=== PATIENT | female | born 1970 ===

== ENCOUNTER 2018-09-06 12:16 | Emergency (ER) | payer SELFPAY ==
[2018-09-06 12:31] VITALS: RESP 18
[2018-09-06] MEDS ORDERED: Sodium Chloride 0.9% 500 ML IV STA (12:47)
[2018-09-06] MEDS ORDERED: DiphenhydrAMINE 50 mg/ml Inj IVP STA (12:47)
--- NOTE | 2018-09-06 12:53 | ED PDOC ---
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 Patient reports her stopped having her menstrual period 5 years ago, and since yesterday, she began experiencing vaginal spotting ranging from heavy to light flow intermittently. Patient states in the past she was told she has fibroids, however they were never removed as they were not causing her any pain at the time. Patient believes the fibroids may be causing the bleeding, however is uncertain. She mentions also having a headache since yesterday. Patient notes experiencing cold-like symptoms, such as sore throat, rhinorrhea, fever, chills, however denies any other complaints at this time. Past Medical History - Provider Review Nursing Documentation Reviewed: Yes - Infectious Disease Hx of Infectious Diseases: None - Psychiatric Hx Substance Use: No - Anesthesia Hx Anesthesia: No Hx Anesthesia Reactions: No Hx Malignant Hyperthermia: No Family/Social History - Physician Review Nursing Documentation Reviewed: Yes Family/Social History: No Known Family HX Smoking Status: Never Smoked Hx Alcohol Use: No Hx Substance Use: No Allergies/Home Meds Allergies/Adverse Reactions: Allergies No Known Allergies Allergy (Verified 09/06/18 12:31) Home Medications: Home Meds Medication Instructions Recorded Confirmed No Known Home Med 09/06/18 09/06/18 Review of Systems - Physician Review All systems were reviewed & negative as marked: Yes - Review of Systems Constitutional: Fevers, Night Sweats ENT: Sore Throat, Rhinorrhea Genitourinary Female: Vaginal Bleeding (vaginal spotting ranging from heavy to light flow intermittently) Neurological: Headache Physical Exam Vital Signs Reviewed: Yes Vital Signs Temp Pulse Resp BP Pulse Ox 09/06/18 12:20 98.3 F 90 18 127/72 95 Temperature: Afebrile Blood Pressure: Normal Pulse: Regular Respiratory Rate: Normal Appearance: Positive for: Well-Appearing, Non-Toxic, Comfortable Pain Distress: None Mental Status: Positive for: Alert and Oriented X 3 - Systems Exam Head: Present: Atraumatic, Normocephalic Pupils: Present: PERRL Extroacular Muscles: Present: EOMI Conjunctiva: Present: Normal Mouth: Present: Moist Mucous Membranes Pharnyx: Present: ERYTHEMA (mild) Neck: Present: Normal Range of Motion Respiratory/Chest: Present: Clear to Auscultation, Good Air Exchange. No: Respiratory Distress, Accessory Muscle Use Cardiovascular: Present: Regular Rate and Rhythm, Normal S1, S2. No: Murmurs Abdomen: No: Tenderness, Distention, Peritoneal Signs Back: Present: Normal Inspection Upper Extremity: Present: Normal Inspection. No: Cyanosis, Edema Lower Extremity: Present: Normal Inspection. No: Edema Neurological: Present: GCS=15, CN II-XII Intact, Speech Normal Skin: Present: Warm, Dry, Normal Color. No: Rashes Psychiatric: Present: Alert, Oriented x 3, Normal Insight, Normal Concentration Medical Decision Making ED Course and Treatment: 09/06/18 12:56 Impression: 48 year old female with vaginal spotting and cold-like symptoms. Physical exam shows mild pharynx erythema. Plan: -- Tylenol -- Benadryl -- Reglan -- IV Fluids -- Labs -- Urinalysis -- Reassess and disposition Progress Notes: 09/06/18 14:59 ucg neg. no indication for emergent imaging. in er neuro intact in nad. no thunderclap. no indication for emergent imaging. advise outpt fu and return precautions. - Scribe Statement The provider has reviewed the documentation as recorded by the Sandi Riggins Provider Scribe Attestation: All medical record entries made by the Sandi were at my direction and personally dictated by me. I have reviewed the chart and agree that the record accurately reflects my personal performance of the history, physical exam, medical decision making, and the department course for this patient. I have also personally directed, reviewed, and agree with the discharge instructions and disposition. Disposition/Present on Arrival - Present on Arrival Any Indicators Present on Arrival: No History of DVT/PE: No History of Uncontrolled Diabetes: No Urinary Catheter: No History of Decub. Ulcer: No History Surgical Site Infection Following: None - Disposition Have Diagnosis and Disposition been Completed?: Yes Diagnosis: Headache, Vaginal bleeding Disposition: HOME/ ROUTINE Disposition Time: 14:00 Condition: STABLE Discharge Instructions (ExitCare): Headache, Adult, Heavy Periods Additional Instructions: return to er with worsening symptoms or concerns. pelase see specialist. you will need further testing and workup as an outpatient. Referrals: Ivet Trotter MD [Staff Provider] - Follow up with primary PCP,NO [Primary Care Provider] - Follow up with primary Forms: Tuee (Yoruba)
[2018-09-06 13:39] LABS: BASO # 0.02 K/mm3 (0.0-2.0); BASO % 0.4 % (0.0-3.0); EOS # 0.1 (0.0-0.7); EOS % 2.2 % (1.5-5.0); HEMOGLOBIN 14.2 g/dL (12.0-16.0); LYMPH % 19.2 % (22.0-35.0); MEAN CELL VOLUME 95.6 fl (80.0-105.0); MEAN CORPUSCULAR HEMOGLOBIN 31.3 pg (25.0-35.0); MEAN CORPUSCULAR HGB CONC 32.8 g/dl (31.0-37.0); MEAN PLATELET VOLUME 9.5 fl (7.0-11.0); MONO # 0.3 (0.1-0.6); MONO % 5.5 % (1.0-6.0); RBC 4.53 10^6/uL (3.5-6.1); RED CELL DISTRIBUTION WIDTH 14.1 % (11.5-14.5); WHITE BLOOD COUNT 5.4 10^3/uL (4.5-11.0)
[2018-09-06 13:55] LABS: HCG,QUALITATIVE URINE NEGATIVE (NEGATIVE)
[2018-09-06 13:56] LABS: URINE BILIRUBIN SMALL (NEGATIVE); URINE BLOOD LARGE (NEGATIVE); URINE GLUCOSE (UA) NEGATIVE (NEGATIVE); URINE LEUKOCYTE ESTERASE TRACE Leu/uL (NEGATIVE); URINE PROTEIN 100 mg/dL (<30 mg/dL); URINE UROBILINOGEN 0.2 E.U./dL (<1 E.U./dL)
[2018-09-06 13:59] LABS: URINE APPEARANCE CLOUDY (CLEAR); URINE COLOR YELLOW (YELLOW)
[2018-09-06 14:00] LABS: INR 1.14; PARTIAL THROMBOPLASTIN TIME 32.5 Seconds (26.9-38.3); PROTHROMBIN TIME 12.7 SECONDS (9.4-12.5)
[2018-09-06 14:04] LABS: ALB/GLOB RATIO 1.2 (1.1-1.8); ALBUMIN 4.6 g/dL (3.0-4.8); ALT/SGPT 55 U/L (7-56); AST/SGOT 57 U/L (14-36); BLOOD UREA NITROGEN 16 mg/dL (7-21); CALCIUM 9.3 mg/dL (8.4-10.5); GFR NON-AFRICAN AMERICAN > 60
[2018-09-06 14:08] LABS: URINE BACTERIA MANY /hpf; URINE RBC TNTC /hpf (0-2)
[2018-09-06 14:09] LABS: URINE AMORPHOUS SEDIMENT MODERATE /hpf; URINE COARSE GRANULAR CAST TRACE /hpf
[2018-09-06 14:15] VITALS: BP 131/77; PULSE 74; TEMP 98.1; O2SAT 97
== END 2018-09-06 14:30 | disposition home or self-care (01) ==
LOC: ED 12:16
DX: R51 Headache (principal); N93.9 Abnormal uterine and vaginal bleeding, unspecified
CPT/HCPCS: 80053; 81001; 81025; 84703; 85025; 85610; 85730; 87086; 96374; 96375; 99285; J1200; J2765; J7040